=== PATIENT | male | born 1950 | race Caucasian/White ===

== ENCOUNTER 2018-02-10 18:51 | Inpatient (IN) | payer MEDICAID ==
[~2018-02-10] VITALS: Ht 180.3 cm; Wt 95.7 kg
[2018-02-10] MEDS ORDERED: Nitroglycerin 2% oint pkt TOPIC ONE (19:00)
[2018-02-10 19:15] VITALS: BP 107/77
--- NOTE | 2018-02-10 19:29 | Emergency Room Report ---
History of Present Illness General Chief Complaint: Chest Pain Source: Patient Present Illness HPI Patient presents with left-sided and substernal chest pain. There are 2 components of it one is pressure in the other one is like a needle. He felt weakness today when he felt the pain. He took baby aspirin in the morning when he felt this pain he took nitroglycerin. The nitroglycerin helped him. Before taking nitroglycerin the blood pressure was 140/80. He states this is quite high for him. He had nausea without any vomiting. He also felt diaphoretic at that time. He denies having exertional symptoms in the last few weeks however he has not felt well and has gained 30 pounds over the last few months. He's been taking Salt with lemon juice to help him with his gastrointestinal tract. Risk factors for cardiac disease: Hypertension, high cholesterol. The patient denies diabetes or smoking. The patient had cardiac catheterization done in 2014. He's not really followed up since that time. He was told that his arteries were pretty good at that time. The patient does suffer from anxiety. No fevers, cough, headache, diarrhea, extremity pain. 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 Reviewed Nursing Documentation: PMH: Agreed; PSxH: Agreed Nursing Documentation-PM Past Medical History: No History, Except For Hx Hypertension: Yes - High cholesterol Hx Cancer: Yes - Prostate CA 2000; Melanoma 2000 Review of Systems All Other Systems: negative except mentioned in HPI Physical Exam Vital Signs Date Time Temp Pulse Resp B/P (MAP) Pulse Ox O2 Delivery O2 Flow Rate FiO2 02/10/18 18:55 98.4 84 18 107/77 98 Room Air 98.4 Sp02 EP Interpretation: reviewed, normal General Appearance: well appearing, no apparent distress, GCS 15 Head: normocephalic Eyes: bilateral eye normal inspection, bilateral eye PERRL ENT: moist mucus membranes Neck: supple Respiratory: lungs clear, normal breath sounds Cardiovascular #1: regular rate, rhythm, edema - Trace bilaterally Cardiovascular #2: 2+ radial (R) Gastrointestinal: normal inspection, normal bowel sounds, non tender, no mass, non-distended Musculoskeletal: back normal, gait/station normal, normal range of motion, no calf tenderness, Cosme's Sign negative Neurologic: alert, oriented x3, grossly normal Psychiatric: anxious Skin: normal inspection, warm/dry Medical Decision Making Diagnostic Impression: Primary Impression: Chest pain Qualified Codes: R07.9 - Chest pain, unspecified ER Course The patient presents with weakness and chest pain is made better by taking nitroglycerin. Differential includes acute coronary syndrome, acute myocardial infarction, costochondritis, esophageal spasm, anxiety amongst others. Evaluation will be with EKG, chest x-ray and labs. The patient retreated with aspirin and nitroglycerin bid. EKG without injury. CXR clear. Labs with neg troponin and slightly elevated glucose. Pain free with treatment here. Patient still needs observation and repeated troponins with probable cardiology consultation. Discussed with Dr. Huff who is covering for Dr. Ibrahim and accepts the patient. ([place] not answer calls.) Transient hypotension - nitro bid removed and small saline bolus given. BP better after interventions. Laboratory Tests Test 02/10/18 19:17 White Blood Count 8.3 K/UL (4.8-10.8) Red Blood Count 5.19 M/UL (4.70-6.10) Hemoglobin 15.9 G/DL (14.2-18.0) Hematocrit 45.1 % (42.0-52.0) Mean Corpuscular Volume 87 FL (80-99) Mean Corpuscular Hemoglobin 30.6 PG (27.0-31.0) Mean Corpuscular Hemoglobin Concent 35.2 G/DL (32.0-36.0) Red Cell Distribution Width 11.4 % (11.6-14.8) L Platelet Count 217 K/UL (150-450) Mean Platelet Volume 6.3 FL (6.5-10.1) L Neutrophils (%) (Auto) 62.9 % (45.0-75.0) Lymphocytes (%) (Auto) 23.0 % (20.0-45.0) Monocytes (%) (Auto) 8.3 % (1.0-10.0) Eosinophils (%) (Auto) 4.8 % (0.0-3.0) H Basophils (%) (Auto) 1.0 % (0.0-2.0) Prothrombin Time 10.1 SEC (9.30-11.50) Prothrombin Time INR 1.0 (0.9-1.1) PTT 26 SEC (23-33) Urine Color Pale yellow Urine Appearance Clear Urine pH 7 (4.5-8.0) Urine Specific [place] 1.005 (1.005-1.035) Urine Protein Negative (NEGATIVE) Urine Glucose (UA) Negative (NEGATIVE) Urine Ketones Negative (NEGATIVE) Urine Occult Blood Negative (NEGATIVE) Urine Nitrite Negative (NEGATIVE) Urine Bilirubin Negative (NEGATIVE) Urine Urobilinogen Normal MG/DL (0.0-1.0) Urine Leukocyte Esterase Negative (NEGATIVE) Sodium Level 136 MMOL/L (136-145) Potassium Level 4.3 MMOL/L (3.5-5.1) Chloride Level 100 MMOL/L (98-107) Carbon Dioxide Level 30 MMOL/L (21-32) Anion Gap 7 mmol/L (5-15) Blood Urea Nitrogen 18 mg/dL (7-18) Creatinine 1.0 MG/DL (0.55-1.30) Estimate Glomerular Filtration Rate > 60 mL/min (>60) Glucose Level 128 MG/DL (74-106) H Calcium Level 8.6 MG/DL (8.5-10.1) Total Bilirubin 0.8 MG/DL (0.2-1.0) Aspartate Amino Transferase (AST) 22 U/L (15-37) Alanine Aminotransferase (ALT) 28 U/L (12-78) Alkaline Phosphatase 90 U/L (46-116) Total Creatine Kinase 71 U/L (26-308) Troponin I 0.000 ng/mL (0.000-0.056) Pro-B-Type Natriuretic Peptide 45 pg/mL (0-125) Total Protein 7.5 G/DL (6.4-8.2) Albumin 4.3 G/DL (3.4-5.0) Globulin 3.2 g/dL Albumin/Globulin Ratio 1.3 (1.0-2.7) EKG Diagnostic Results Rate: normal Rhythm: NSR ST Segments: no acute changes Rhythm Strip Diag. Results EP Interpretation: yes Rhythm: NSR, no PVC's, no ectopy Chest X-Ray Diagnostic Results Chest X-Ray Diagnostic Results : Chest X-Ray Ordered: Yes # of Views/Limited/Complete: 1 View Indication: Chest Pain EP Interpretation: Yes Interpretation: no consolidation, no effusion, no pneumothorax Impression: No acute disease Electronically Signed by: Electronically signed by Giovani Hernandez MD Last Vital Signs Date Time Temp Pulse Resp B/P (MAP) Pulse Ox O2 Delivery O2 Flow Rate FiO2 02/10/18 21:45 98.1 75 18 98/57 98 Nasal Cannula 1.0 98.1 Status: improved Disposition: ADMITTED INPATIENT Condition: Serious Referrals: [facility],REFERRING (PCP) Giovani Hernandez M.D. Feb 10, 2018 19:29
[2018-02-10] MEDS ORDERED: ASPIR 8181 MG ORAL (19:33)
[2018-02-10] MEDS ORDERED: ZOCOR40 MG ORAL (19:33)
[2018-02-10 19:35] LABS: APPEARANCE,URINE CLEAR; BILIRUBIN, URINE NEGATIVE (NEGATIVE); COLOR,URINE PALE YELLOW; GLUCOSE, URINE (UA) NEGATIVE (NEGATIVE); KETONES,URINE NEGATIVE (NEGATIVE); LEUKOCYTE ESTERASE ,URINE NEGATIVE (NEGATIVE); NITRITE,URINE NEGATIVE (NEGATIVE); PH,URINE 7 (4.5-8.0); PROTEIN,URINE NEGATIVE (NEGATIVE); UROBILINOGEN,URINE NORMAL MG/DL (0.0-1.0)
[2018-02-10 19:37] LABS: EOSINOPHILS % (AUTO) 4.8 % (0.0-3.0); HEMATOCRIT 45.1 % (42.0-52.0); HEMOGLOBIN 15.9 G/DL (14.2-18.0); MEAN CORPUSCULAR VOLUME 87 FL (80-99); MONOCYTES % (AUTO) 8.3 % (1.0-10.0); NEUTROPHILS % (AUTO) 62.9 % (45.0-75.0); PLATELET COUNT 217 K/UL (150-450); RED BLOOD COUNT 5.19 M/UL (4.70-6.10); RED CELL DISTRIBUTION WIDTH 11.4 % (11.6-14.8); WHITE BLOOD COUNT 8.3 K/UL (4.8-10.8)
[2018-02-10 19:45] LABS: ANION GAP 7 mmol/L (5-15); BLOOD UREA NITROGEN 18 mg/dL (7-18); CALCIUM 8.6 MG/DL (8.5-10.1); CARBON DIOXIDE 30 MMOL/L (21-32); CHLORIDE 100 MMOL/L (98-107); POTASSIUM 4.3 MMOL/L (3.5-5.1); SODIUM 136 MMOL/L (136-145)
[2018-02-10 19:55] LABS: ALANINE AMINOTRANSFERASE 28 U/L (12-78); ALBUMIN 4.3 G/DL (3.4-5.0); ALBUMIN/GLOBULIN RATIO 1.3 (1.0-2.7); ALKALINE PHOSPHATASE 90 U/L (46-116); ASPARTATE AMINO TRANSFERASE 22 U/L (15-37); BILIRUBIN,TOTAL 0.8 MG/DL (0.2-1.0); CREATINE KINASE 71 U/L (26-308)
[2018-02-10 20:13] VITALS: BP 103/64
[2018-02-10] MEDS ORDERED: Nitroglycerin Subl 0.4mg tab SL PRN (20:48)
[2018-02-10] MEDS ORDERED: Aspirin EC 81mg tab ORAL SCH (20:52)
[2018-02-10] MEDS: Atorvastatin 20mg tab ORAL SCH (21:00)
[2018-02-10] MEDS ORDERED: Sodium Chloride 500ML 250 ML IV ONE (21:00)
[2018-02-10 21:13] VITALS: BP 98/57
[2018-02-10 22:00] VITALS: BP 120/79
[2018-02-10] MEDS: Enoxaparin 40mg Inj SUBQ SCH (22:54)
[2018-02-11] VITALS: BP 105/63
[2018-02-11 04:00] VITALS: BP 107/62
[2018-02-11 04:36] LABS: BASOPHILS % (AUTO) 0.8 % (0.0-2.0); EOSINOPHILS % (AUTO) 6.7 % (0.0-3.0); HEMATOCRIT 42.6 % (42.0-52.0); HEMOGLOBIN 15.3 G/DL (14.2-18.0); LYMPHOCYTES % (AUTO) 28.7 % (20.0-45.0); MEAN CORPUSCULAR VOLUME 88 FL (80-99); NEUTROPHILS % (AUTO) 53.7 % (45.0-75.0); PLATELET COUNT 182 K/UL (150-450); RED BLOOD COUNT 4.82 M/UL (4.70-6.10); RED CELL DISTRIBUTION WIDTH 11.1 % (11.6-14.8); WHITE BLOOD COUNT 6.1 K/UL (4.8-10.8)
[2018-02-11 04:52] LABS: ANION GAP 6 mmol/L (5-15); BLOOD UREA NITROGEN 12 mg/dL (7-18); CALCIUM 8.5 MG/DL (8.5-10.1); CARBON DIOXIDE 30 MMOL/L (21-32); CHLORIDE 104 MMOL/L (98-107); CREATININE 0.9 MG/DL (0.55-1.30); POTASSIUM 3.8 MMOL/L (3.5-5.1); SODIUM 140 MMOL/L (136-145)
[2018-02-11 08:00] VITALS: BP 107/71
--- NOTE | 2018-02-11 10:17 | Cardiac Electrophysiology PN ---
Subjective Subjective [id number] Objective Last 24 Hour Vital Signs Date Time Temp Pulse Resp B/P (MAP) Pulse Ox O2 Delivery O2 Flow Rate FiO2 02/11/18 04:12 62 02/11/18 04:00 97.0 61 18 107/62 97 Room Air 97.0 02/11/18 00:00 98.2 72 18 105/63 95 Room Air 98.2 02/11/18 00:00 64 02/10/18 22:00 97.9 60 18 120/79 95 Room Air 97.9 02/10/18 21:45 98.1 75 18 98/57 98 Nasal Cannula 1.0 98.1 02/10/18 21:13 98.1 75 18 98/57 98 Nasal Cannula 1.0 98.1 02/10/18 20:13 98.1 78 18 103/64 97 Nasal Cannula 1.0 98.1 02/10/18 19:30 128/74 02/10/18 19:15 98.4 84 18 107/77 98 Room Air 98.4 02/10/18 19:15 84 18 Room Air 02/10/18 18:55 98.4 84 18 107/77 98 Room Air 98.4 Intake and Output 02/10/18 02/11/18 19:00 07:00 Intake Total 600 ml Balance 600 ml Intake IV Total 600 ml # Voids 3 Laboratory Tests Test 02/10/18 19:17 02/11/18 04:04 White Blood Count 8.3 K/UL (4.8-10.8) 6.1 K/UL (4.8-10.8) Red Blood Count 5.19 M/UL (4.70-6.10) 4.82 M/UL (4.70-6.10) Hemoglobin 15.9 G/DL (14.2-18.0) 15.3 G/DL (14.2-18.0) Hematocrit 45.1 % (42.0-52.0) 42.6 % (42.0-52.0) Mean Corpuscular Volume 87 FL (80-99) 88 FL (80-99) Mean Corpuscular Hemoglobin 30.6 PG (27.0-31.0) 31.8 PG (27.0-31.0) H Mean Corpuscular Hemoglobin Concent 35.2 G/DL (32.0-36.0) 36.0 G/DL (32.0-36.0) Red Cell Distribution Width 11.4 % (11.6-14.8) L 11.1 % (11.6-14.8) L Platelet Count 217 K/UL (150-450) 182 K/UL (150-450) Mean Platelet Volume 6.3 FL (6.5-10.1) L 7.2 FL (6.5-10.1) Neutrophils (%) (Auto) 62.9 % (45.0-75.0) 53.7 % (45.0-75.0) Lymphocytes (%) (Auto) 23.0 % (20.0-45.0) 28.7 % (20.0-45.0) Monocytes (%) (Auto) 8.3 % (1.0-10.0) 10.0 % (1.0-10.0) Eosinophils (%) (Auto) 4.8 % (0.0-3.0) H 6.7 % (0.0-3.0) H Basophils (%) (Auto) 1.0 % (0.0-2.0) 0.8 % (0.0-2.0) Prothrombin Time 10.1 SEC (9.30-11.50) Prothromb Time International Ratio 1.0 (0.9-1.1) Activated Partial Thromboplast Time 26 SEC (23-33) Urine Color Pale yellow Urine Appearance Clear Urine pH 7 (4.5-8.0) Urine Specific [place] 1.005 (1.005-1.035) Urine Protein Negative (NEGATIVE) Urine Glucose (UA) Negative (NEGATIVE) Urine Ketones Negative (NEGATIVE) Urine Occult Blood Negative (NEGATIVE) Urine Nitrite Negative (NEGATIVE) Urine Bilirubin Negative (NEGATIVE) Urine Urobilinogen Normal MG/DL (0.0-1.0) Urine Leukocyte Esterase Negative (NEGATIVE) Sodium Level 136 MMOL/L (136-145) 140 MMOL/L (136-145) Potassium Level 4.3 MMOL/L (3.5-5.1) 3.8 MMOL/L (3.5-5.1) Chloride Level 100 MMOL/L (98-107) 104 MMOL/L (98-107) Carbon Dioxide Level 30 MMOL/L (21-32) 30 MMOL/L (21-32) Anion Gap 7 mmol/L (5-15) 6 mmol/L (5-15) Blood Urea Nitrogen 18 mg/dL (7-18) 12 mg/dL (7-18) Creatinine 1.0 MG/DL (0.55-1.30) 0.9 MG/DL (0.55-1.30) Estimat Glomerular Filtration Rate > 60 mL/min (>60) > 60 mL/min (>60) Glucose Level 128 MG/DL (74-106) H 109 MG/DL (74-106) H Calcium Level 8.6 MG/DL (8.5-10.1) 8.5 MG/DL (8.5-10.1) Total Bilirubin 0.8 MG/DL (0.2-1.0) Aspartate Amino Transf (AST/SGOT) 22 U/L (15-37) Alanine Aminotransferase (ALT/SGPT) 28 U/L (12-78) Alkaline Phosphatase 90 U/L (46-116) Total Creatine Kinase 71 U/L (26-308) Troponin I 0.000 ng/mL (0.000-0.056) 0.000 ng/mL (0.000-0.056) Pro-B-Type Natriuretic Peptide 45 pg/mL (0-125) Total Protein 7.5 G/DL (6.4-8.2) Albumin 4.3 G/DL (3.4-5.0) Globulin 3.2 g/dL Albumin/Globulin Ratio 1.3 (1.0-2.7) Fan Cisse MD Feb 11, 2018 10:17
[2018-02-11] MEDS: Aspirin EC 81mg tab ORAL SCH (10:20)
[2018-02-11] MEDS ORDERED: Lexiscan 0.4mg/5ml syringe IV PRN (10:30)
--- NOTE | 2018-02-11 10:57 | Diagnostic Imaging Report ---
Indication: Chest pain Technique: XRAY Chest 1v Comparison: None Findings: Heart size and mediastinal contours are within normal limits given technique. There is no focal consolidation, pneumothorax or pleural effusion. Osseous structures demonstrate no acute abnormality. Impression: No radiographic evidence of acute cardiopulmonary disease.
[2018-02-11 12:00] VITALS: BP 112/73
--- NOTE | 2018-02-11 14:45 | History and Physical Report ---
DATE OF ADMISSION: 02/10/2018 REASON FOR ADMISSION: 1. Chest pain. 2. Hypertension. HISTORY OF PRESENT ILLNESS: The patient is a pleasant 67-year-old gentleman, who was admitted overnight for further evaluation and care of chest pain after eating. The patient states that he has noted several times after eating garlic he becomes diaphoretic, nauseated, and slightly weak. This time, he also developed some left-sided chest pain. He had nitroglycerin at home and took one pill and felt better. The patient's nitroglycerin was prescribed by his primary care physician at his request in case of an emergency as he has a history of familial coronary artery disease. The patient did undergo a heart catheterization in 2013, which was negative. He is currently feeling well, chest pain has since resolved. Blood pressure has stabilized and come back to normal. The patient states that he had been initiated on one antihypertensive medication, but only took it for one week and discontinued it. PAST MEDICAL HISTORY: 1. Hypertension. 2. Hyperlipidemia. PAST SURGICAL HISTORY: Heart catheterization in 2013. ALLERGIES: To penicillin. SOCIAL HISTORY: No tobacco, alcohol, or illicit drug use. FAMILY HISTORY: Positive for coronary artery disease. REVIEW OF SYSTEMS: NEUROLOGIC: The patient denies headache, change in vision, syncope, or presyncopal episodes. CARDIOVASCULAR: He is having some chest pain and pressure. No palpitations. PULMONARY: No difficulty breathing, productive cough, or sputum. GASTROINTESTINAL/GENITOURINARY: No nausea, vomiting, or diarrhea. ENDOCRINOLOGY: No night sweats, fevers, or chills. MUSCULOSKELETAL: The patient is feeling tired and fatigued. PHYSICAL EXAMINATION: VITAL SIGNS: Blood pressure 107/62, pulse oximetry 97%, pulse 61, and temperature 97.0. GENERAL: The patient awake, alert, not otherwise in distress. HEENT: Extraocular muscles intact. No lymphadenopathy noted. CARDIOVASCULAR: S1, S2. No rubs or gallops. PULMONARY: Clear to auscultation bilaterally. No rales, rhonchi or wheezes. ABDOMEN: Nondistended, nontender. Good bowel sounds in all four quadrants. EXTREMITIES: No edema. Fair pedal pulses bilaterally. LABORATORY DATA: Laboratories dated February 11, 2018, white cell count 6.1, hemoglobin 15.3, and platelet count 182. Sodium 140, potassium 3.8, creatinine 0.9, and glucose 109. ASSESSMENT AND PLAN: 1. Acute coronary syndrome/chest pain, has resolved post one dose of nitroglycerin. Atypical in nature. Troponin negative. Cardiology consult has been placed. After echocardiogram with and without a stress test, Cardiology to determine whether or not heart catheterization appropriate at that time. Depending on these investigations, procedures, the patient will then be discharged. 2. Hypertension. Resolved. Post nitroglycerin. Continue IV fluids. 3. Hyperlipidemia. Continue statin therapy. 4. DVT prophylaxis with Lovenox. Kyler Quintero MD DR: ADAM JOB#: [id number] CC: HEATHER
[2018-02-11 16:00] VITALS: BP 124/77
--- NOTE | 2018-02-11 19:45 | Consultation ---
DATE OF CONSULTATION: 02/11/2018 CARDIOLOGY CONSULTATION CONSULTING PHYSICIAN: Fan Cisse M.D. REFERRING PHYSICIAN: Aman Ibrahim M.D. ADDITIONAL REFERRING PHYSICIAN: Filiberto Browning M.D. REASON FOR CONSULTATION: Chest pain. HISTORY OF PRESENT ILLNESS: The patient is a 67-year-old gentleman who was just recently diagnosed with hypertension and presented to the emergency room yesterday complaining of left-sided chest pain. The pain was pressure-like and was associated with weakness. He also stated that he was recently started on blood pressure medication as his blood pressure was in the 140s. The patient denies any prior myocardial infarction, congestive heart failure, or known coronary artery disease. The patient was admitted and Cardiology consultation was obtained for further evaluation and management. At the time of my evaluation, the patient still off and on gets chest pain. REVIEW OF SYSTEMS: Performed and was negative other than what was mentioned in the history of present illness. PAST MEDICAL HISTORY: As mentioned above. He states that he had cardiac catheterization arteries were good at that time, but he does not remember when. He reports he also has history of prostate cancer in June 2001. FAMILY HISTORY: Noncontributory. SOCIAL HISTORY: He lives at home. Does not smoke or drink alcohol. PHYSICAL EXAMINATION: VITAL SIGNS: Show blood pressure of 107/62, pulse 61, respirations 18, and he is afebrile. HEAD AND NECK: No JVD or carotid bruits. LUNGS: Clear. CARDIOVASCULAR: Regular S1 and S2 with no gallop or murmur. ABDOMEN: Soft and nontender. EXTREMITIES: No pitting edema. LABORATORY DATA: White count of hematocrit 15.7, hematocrit 42.6, platelet count 182,000. Sodium 140, potassium 3.8, BUN of 12, creatinine 0.9, glucose of 109. Troponin negative x2. ASSESSMENT AND PLAN: 1. Atypical chest pain. The patient was ruled out for myocardial infarction. Repeat EKG and echocardiogram. We will schedule the patient for a nuclear stress test for further evaluation. Also check D-dimer. The patient has no known history of aortic dissection. It is of note that also the patient reported he had cardiac catheterization in 2014, and reportedly was negative. 2. Hypertension. We will start the patient on Lopressor 25 mg b.i.d. 3. Hyperlipidemia, on Lipitor. Thank you very much for allowing me to participate in the care of this patient. Please do not hesitate to contact me for any questions regarding my evaluation. Fan Cisse M.D. DR: THERON JOB#: [id number] CC:
[2018-02-11 20:00] VITALS: BP 149/68
[2018-02-11] MEDS: Atorvastatin 20mg tab ORAL SCH (20:40)
[2018-02-11] MEDS: Enoxaparin 40mg Inj SUBQ SCH (20:49)
[2018-02-12] VITALS: BP 152/79
--- NOTE | 2018-02-12 00:36 | Cardiology Report ---
APPROVED REPORT EKG Measurement Heart [id number] Normal sinus rhythm Normal ECG
[2018-02-12 04:00] VITALS: BP 130/62
[2018-02-12 07:56] LABS: ANION GAP 6 mmol/L (5-15); BLOOD UREA NITROGEN 5 mg/dL (7-18); CARBON DIOXIDE 31 MMOL/L (21-32); CHLORIDE 105 MMOL/L (98-107); CREATININE 0.9 MG/DL (0.55-1.30); POTASSIUM 4.3 MMOL/L (3.5-5.1); SODIUM 142 MMOL/L (136-145)
[2018-02-12 08:00] VITALS: BP 115/69
--- NOTE | 2018-02-12 08:15 | Nephrology Progress Note ---
Assessment/Plan Assessment/Plan 1. ACS/Chest Pain- DC today post nuclear stress test if it is negative 2. HTN- start lopressor 3. HLP- statin 4. DVT prophylaxsis with lovenox Subjective Date patient seen: Feb 12, 2018 Time patient seen: 08:12 ROS Limited/Unobtainable: No Allergies: Coded Allergies: PENICILLINS (Verified Allergy, Unknown, 02/10/18) All Systems: reviewed and negative except above Subjective Patient without chest pain Objective Last 24 Hour Vital Signs Date Time Temp Pulse Resp B/P (MAP) Pulse Ox O2 Delivery O2 Flow Rate FiO2 02/12/18 04:00 97.9 60 18 130/62 95 Room Air 97.9 02/12/18 04:00 63 02/12/18 00:00 98.4 68 18 152/79 96 Room Air 98.4 02/12/18 00:00 64 02/11/18 20:00 88 02/11/18 20:00 97.6 88 20 149/68 98 Room Air 97.6 02/11/18 16:00 67 02/11/18 16:00 98.0 69 18 124/77 96 Room Air 98.0 02/11/18 12:00 97.7 64 19 112/73 96 Room Air 97.7 02/11/18 12:00 54 Intake and Output 02/11/18 02/12/18 19:00 07:00 Intake Total 560 ml 240 ml Balance 560 ml 240 ml Intake Oral 560 ml 240 ml # Voids 5 2 # Bowel Movements 1 Laboratory Tests 02/12/18 06:30: Sodium Level 142, Potassium Level 4.3, Chloride Level 105, Carbon Dioxide Level 31, Anion Gap 6, Blood Urea Nitrogen 5L, Creatinine 0.9, Estimat Glomerular Filtration Rate > 60, Glucose Level 98, Calcium Level 9.0 Height (Feet): 5 Height (Inches): 11.00 Weight (Pounds): 211 General Appearance: no apparent distress, alert EENT: normal ENT inspection, TMs normal Neck: non-tender, supple Cardiovascular: normal rate, regular rhythm Respiratory/Chest: lungs clear, normal breath sounds Abdomen: non tender, soft Edema: no edema noted Arm (L), no edema noted Arm (R), no edema noted Leg (L), no edema noted Leg (R), no edema noted Pedal (L), no edema noted Pedal (R), no edema noted Generalized Kyler Quintero M.D. Feb 12, 2018 08:15
--- NOTE | 2018-02-12 08:16 | Discharge Instructions ---
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 Kyler Quintero M.D. Feb 12, 2018 08:16
[2018-02-12] MEDS: Aspirin EC 81mg tab ORAL SCH (08:20)
[2018-02-12] MEDS ORDERED: Tubing IV Secondary IV ONE (10:07)
[2018-02-12 12:00] VITALS: BP 120/70
--- NOTE | 2018-02-12 13:55 | Cardiology Report ---
APPROVED REPORT EXAM: Two-dimensional and M-mode echocardiogram with Doppler and color Doppler. INDICATION Chest Pain M-Mode DIMENSIONS IVSd1.1 (0.7-1.1cm)Left Atrium (MM)4.3 (1.6-4.0cm) LVDd4.9 (3.5-5.6cm)Aortic Root4.0 (2.0-3.7cm) PWd1.1 (0.7-1.1cm)Aortic Cusp Exc.2.4 (1.5-2.0cm) IVSs1.6 cm LVDs3.3 (2.5-4.0cm) PWs1.3 cm Technically difficult study due to poor acoustical windows. Normal left ventricular chamber size, systolic function and wall motion to extent visualized. Left ventricular ejection fraction estimated to be 50-55 %. Mild left ventricular hypertrophy by 2-D . No evidence of pericardial effusion. All other cardiac chamber sizes are within normal limits. Focal aortic valve sclerosis with adequate cusp excursion. Thickened mitral valve leaflets with normal excursion. Mitral annulus and aortic root calcification. Pulmonic valve not well visualized. Normal tricuspid valve structure. IVC dilated at 2.4cm without physiologic collapse suggestive of increased RA pressure. A color flow and spectral Doppler study was performed and revealed: No aortic regurgitation. Mild mitral regurgitation. Normal left ventricular diastolic function . Trace tricuspid regurgitation. Tricuspid systolic velocities suggests peak right ventricular systolic pressure of 17 mmHg No Pulmonic regurgitation present.
--- NOTE | 2018-02-12 15:18 | Cardiac Electrophysiology PN ---
Assessment/Plan Assessment/Plan 1. Atypical chest pain. The patient was ruled out for myocardial infarction. Echocardiogram EF 55%. Had nuclear stress test and results still pending Had cardiac catheterization in 2015, and reportedly was negative. 2. Hypertension. Stable off BP meds 3. Hyperlipidemia, on Lipitor. Subjective Subjective Had nuclear stress test with Lexiscan today. No CP or SOB. Results pending Objective Last 24 Hour Vital Signs Date Time Temp Pulse Resp B/P (MAP) Pulse Ox O2 Delivery O2 Flow Rate FiO2 02/12/18 12:00 97.3 63 120/70 (87) 97.3 63 02/12/18 12:00 64 02/12/18 08:00 97.2 60 20 115/69 97 Room Air 97.2 02/12/18 08:00 62 02/12/18 04:00 97.9 60 18 130/62 95 Room Air 97.9 02/12/18 04:00 63 02/12/18 00:00 98.4 68 18 152/79 96 Room Air 98.4 02/12/18 00:00 64 02/11/18 20:00 88 02/11/18 20:00 97.6 88 20 149/68 98 Room Air 97.6 02/11/18 16:00 67 02/11/18 16:00 98.0 69 18 124/77 96 Room Air 98.0 Intake and Output 02/11/18 02/12/18 19:00 07:00 Intake Total 560 ml 240 ml Balance 560 ml 240 ml Intake Oral 560 ml 240 ml # Voids 5 2 # Bowel Movements 1 Laboratory Tests Test 02/12/18 06:30 Sodium Level 142 MMOL/L (136-145) Potassium Level 4.3 MMOL/L (3.5-5.1) Chloride Level 105 MMOL/L (98-107) Carbon Dioxide Level 31 MMOL/L (21-32) Anion Gap 6 mmol/L (5-15) Blood Urea Nitrogen 5 mg/dL (7-18) L Creatinine 0.9 MG/DL (0.55-1.30) Estimat Glomerular Filtration Rate > 60 mL/min (>60) Glucose Level 98 MG/DL (74-106) Calcium Level 9.0 MG/DL (8.5-10.1) Objective HEAD AND NECK: No JVD LUNGS: Clear. CARDIOVASCULAR: Regular S1 and S2 with no gallop or murmur. ABDOMEN: Soft and nontender. EXTREMITIES: No pitting edema. Fan Cisse MD Feb 12, 2018 15:18
--- NOTE | 2018-02-12 15:25 | Diagnostic Imaging Report ---
Indication: chest pain Technique: The study was conducted under the supervision of a regulator operator. lexiscan (regadenoson) infusion over 10 seconds followed by intravenous administration of 31.9 mCi of technetium 99m Myoview was performed. Three plane SPECT imaging of the heart was then performed. A resting study was performed as part of the one-day protocol with 10.1 mCi of technetium 99m myoview injected intravenously at that time. Three plane SPECT imaging of the heart was obtained. Comparison: None Clinical data: 1. Clinical response: Non ischemic 2. Electrocardiographic response: Non ischemic Findings: The myocardial perfusion scan demonstrates no fixed or reversible perfusion defects. Left ventricular ejection fraction is estimated at 67%. IMPRESSION: Negative myocardial perfusion scan
--- NOTE | 2018-02-15 12:04 | Discharge Summary ---
Discharge Summary Discharge Summary _ DATE OF ADMISSION: 02/10/2018 DATE OF DISCHARGE: 02/12/2018 REASON FOR ADMISSION: 67 years old male with past medical history of hypertension, high cholesterol , presented to emergency room for evaluation due to chest pain. Patient developed chest pain after eating garlic. He became diaphoretic, nauseous and weak. He developed left-sided chest pain , no shortness of breath. He took nitroglycerin as prescribed by his primary care physician and felt better. Patient had a cardiac catheterization in 2013, which was negative. Upon evaluation in emergency department vital signs were stable. Patient was normotensive. Troponin was negative. Stable electrolytes and renal parameters, no leukocytosis, stable hemoglobin and hematocrit. Pro BNP- 45. Chest x-ray revealed no acute cardiopulmonary pathology EKG revealed normal sinus rhythm, no acute ischemic changes Patient admitted with diagnosis of chest pain, rule out acute coronary syndrome CONSULTANTS: teacher aide Dr. Cisse [facility]SE: Patient admitted to telemetry floor. Cardiology consult was requested. Serial troponin 2 were negative. Echocardiogram revealed preserved ejection fraction 55%. Patient was on Aspirin. Nitroglycerin was on board as needed. Stress test was negative. Calculated ejection fraction of 67%. DVT prophylaxis provided. Blood pressure was stable without any antihypertensive medications. Statin was continued. No further chest pain after the initial episode, no shortness of breath. Pulse oximetry was stable on room air. Manager Of Warehouse cleared patient for discharge. Patient was stable for discharge home with outpatient follow-up with primary care provider Chest pain was atypical . FINAL DIAGNOSES: Atypical chest pain Hypertension Hyperlipidemia DISCHARGE MEDICATIONS: See Medication Reconciliation list. DISCHARGE INSTRUCTIONS: Patient was discharged home. Follow up with primary care provider next week. I have been assigned to dictate discharge summary for this account. I was not involved in the patient's management. Kourtney Cooper NP Feb 15, 2018 12:04
== END 2018-02-12 16:50 | disposition home or self-care (01) | DRG 203 ==
LOC: EMR 19:10 → 2E 20:30 → EDBEDREQ 20:43
DX: R07.89 Other chest pain (principal); E78.5 Hyperlipidemia, unspecified; I10 Essential (primary) hypertension; Z88.0 Allergy status to penicillin; Z82.49 Family history of ischemic heart disease and other diseases of the circulatory system
CPT/HCPCS: 36415; 71045; 78452; 80048; 80053; 81003; 82550; 83880; 84484; 85025; 85610; 85730; 93005; 93017; 93306; 99285; J2785

== ENCOUNTER 2019-07-24 01:16 | Emergency (ER) | payer MEDICAID ==
[~2019-07-24] VITALS: Ht 180.3 cm; Wt 90.7 kg
[~2019-07-24 01:16] MED LIST: ASPIR 8181 MG ORAL; ZOCOR40 MG ORAL
--- NOTE | 2019-07-24 01:26 | NUR ---
ER Nurse Note: Pt walked in c/o RT hand second digit pain and swelling since 0110. Pt stated he was at a gas station and got bitten by an insect of unk species. Finger red, slightly swollen; no puss, no drainage. Pt stated it is getting more painful to move finger. Cap refill less than 3 secs.
[2019-07-24 01:27] VITALS: BP 134/88
[2019-07-24] MEDS ORDERED: IBUPROFEN600 MG ORAL (01:38)
[2019-07-24] MEDS ORDERED: ACETAMINOPHEN325 M1 ORAL (01:38)
[2019-07-24] MEDS ORDERED: BENADRYL ALLERG25 M1 PO (01:38)
[2019-07-24 01:45] VITALS: BP 134/88
[2019-07-24] MEDS ORDERED: Acetaminophen 500mg (ES) tab ORAL ONE (01:45)
[2019-07-24] MEDS ORDERED: Tetanus/Diptheria/Pertussis IM ONE (01:45)
--- NOTE | 2019-07-24 01:45 | NUR ---
ER Nurse Note: Pt seen, treated, cleared to be discharged per ERMD. Discharge instructions given with repeat verbalization by pt. Encouraged pt follow up with primary care doctor within one week. Pt is aox4, on room air, with stable vital signs, no signs of distress. ID band removed. Pt is able to ambulate with steady gait. pt took all belongings.
--- NOTE | 2019-07-24 01:45 | Emergency Room Report ---
History of Present Illness General Chief Complaint: Animal Bite Source: Patient Present Illness HPI Disclaimer: Please note that this report is being documented using DRAG[employer] technology. This can lead to erroneous entry secondary to incorrect interpretation by the dictating instrument. HPI: 68-year-old male presents for evaluation of possible insect bite to the right index finger. The patient was pumping gas approximately 15 minutes ago when he noticed a sudden sharp stinging while grabbing the handle. He saw several flying insects around at that time believes he was bit/stung by 1 of them. States he removed a very small dark sliver from his finger. Believes it was a stinger. Reports pain in the tip of his finger and local erythema. Able to flex and extend the digit without difficulty. No bleeding, no purulence. He reports a small "puncture wound" but otherwise no breakdown. PMH: CAD, hypertension, hyperlipidemia PSH: Reviewed Allergies: Penicillin Social Hx: Denies Allergies: Coded Allergies: PENICILLINS (Verified Allergy, Unknown, 02/10/18) Nursing Documentation-PMH Hx Cardiac Problems: No Hx Hypertension: Yes - High cholesterol Hx Cancer: Yes - melanoma 2001, prostate cancer Hx Gastrointestinal Problems: No Hx Neurological Problems: No Review of Systems All Other Systems: negative except mentioned in HPI Physical Exam Vital Signs Date Time Temp Pulse Resp B/P (MAP) Pulse Ox O2 Delivery O2 Flow Rate FiO2 19 01:19 97.5 81 16 134/88 (103) 94 Room Air General: Awake and alert, no acute distress HEENT: NC/AT. EOMI. Resp: Normal work of breathing Skin: The digits on the right hand have no significant edema though there is erythema over the distal pad of the right index finger. No bleeding, no purulence, no breakdown. Small avulsion of the epidermis but no obvious penetrating injury or puncture wound. MSK: Normal tone and bulk. Moving all extremities. No obvious deformity. No fusiform swelling. Able to flex and extend all digits of the hand. Mild tenderness to palpation over the distal pad of the right index finger. Sensation intact. Neuro: Awake and alert. Mentating appropriately Medical Decision Making Diagnostic Impression: Primary Impression: Finger pain Additional Impression: Insect bite ER Course 68-year-old male presents for evaluation of possible insect bite to the right index finger while pumping gas. It does not know what bit him or what may have caused the either very small puncture lizz or an abrasion of the superficial epidermis but he does state he removed a "stinger." Unknown last tetanus. Will update and treat the patient with NSAIDs and Benadryl for local swelling. This may be just a local reaction to an insect bite. I do not see any signs of necrotic tissue, no Knievel signs. He can follow-up as outpatient. Discussed signs and symptoms to look out for for worsening infection and signs of systemic infection. He is to follow-up with his PMD and return to the emergency department new or worsening symptoms. He understands and agrees with this treatment plan. Discharged home. Last Vital Signs Date Time Temp Pulse Resp B/P (MAP) Pulse Ox O2 Delivery O2 Flow Rate FiO2 07/24/19 01:27 97.5 81 16 134/88 94 Room Air Disposition: HOME, SELF-CARE Condition: Stable Scripts Diphenhydramine Hcl (BENADRYL ALLERGY) 25 Mg Tablet 25 MG PO TID for 5 Days, #30 TAB Prov: Nadeem Jimenez MD 07/24/19 Acetaminophen* (ACETAMINOPHEN 325MG TABLET*) 325 Mg Tablet 650 MG ORAL Q6H PRN for For Pain for 5 Days, #30 TAB Prov: Nadeem Jimenez MD 07/24/19 Ibuprofen* (MOTRIN*) 600 Mg Tablet 600 MG ORAL Q8H PRN for For Pain, #30 TAB 0 Refills Prov: Nadeem Jimenez MD 07/24/19 Referrals: Tasha Sumner. [facility] Patient Instructions: Insect Bite, [id number] Additional Instructions: Your evaluated in the emergency department for a possible insect bite on your finger. Your tetanus was updated in the emergency department. He will be treated with Benadryl for swelling and Tylenol and Motrin as needed for pain. If you see skin breakdown, significant swelling, uncontrollable pain, vomiting, diarrhea or any other changes in your health return to the emergency department for reevaluation Nadeem Jimenez MD Jul 24, 2019 01:45
== END 2019-07-24 01:45 | disposition home or self-care (01) ==
LOC: EMR 01:37
DX: S60.460A Insect bite (nonvenomous) of right index finger, initial encounter (principal); W57.XXXA Bitten or stung by nonvenomous insect and other nonvenomous arthropods, initial encounter; Y92.9 Unspecified place or not applicable; I11.9 Hypertensive heart disease without heart failure; I25.10 Atherosclerotic heart disease of native coronary artery without angina pectoris; E78.5 Hyperlipidemia, unspecified; Z88.0 Allergy status to penicillin; Z85.46 Personal history of malignant neoplasm of prostate; Z85.820 Personal history of malignant melanoma of skin; E78.00 Pure hypercholesterolemia, unspecified; Z23 Encounter for immunization
CPT/HCPCS: 90471; 90715; Z7502; 99282

== ENCOUNTER 2020-09-02 16:48 | Emergency (ER) | payer MEDICAID ==
[~2020-09-02] VITALS: Ht 180.3 cm; Wt 95.3 kg
[~2020-09-02 16:48] MED LIST changes: +ACETAMINOPHEN325 M1 ORAL; +BENADRYL ALLERG25 M1 PO; +IBUPROFEN600 MG ORAL
[2020-09-02 17:18] VITALS: BP 143/83
--- NOTE | 2020-09-02 17:18 | NUR ---
ED Nurse Note:pt. came from home with right facial numbness and discomfort, pt. is ambulatory, VSS, he is A/Ox4, no signs of stroke present
--- NOTE | 2020-09-02 17:34 | Emergency Room Report ---
History of Present Illness General Chief Complaint: General Complaint Present Illness HPI 69 YO Male presents to the ED c/o onset of facial numbness that began on the right side of the upper lip and extended to the right cheek bone and lateral aspect of the right. eye. Pt. reports transient and began to spontaneously resolve. Pt. reports while resolving he describes the affected area to feel "warm" . He also reports an episode of shooting electrical sensation and numbness along his whole right side all the way down to the toes. Pt. reports tapping on the right sinus area or trying to blow his nose exacerbates shooting pain on right side of his face in a similar fashion but without radiation down his whole body. He denies pain at this time unless he taps on his face. Pt. denies recent dental procedures. He reports s/p mechanical trip and fall while running outside last week. Pt. reports hitting his head and sustaining bruise just under his right eye. Pt. reports he has tenderness in that area and it began 2 days after fall. Pt. denies LOC. He denies midline neck or back pain. Pt. reports feeling "pressure" around the right eye. He reports some mild pain with moving his eye in various directions. Pt. reports taking ASA daily. he has hx of HTN , melanoma and hyperlipidemia. He denies nausea or vomiting. He r eports intermittent dizziness/ blurry vision in just the right eye when looking back and forth too quickly. He denies having dizziness prior to arrival. He denies contact lens use. He denies fb sensation or scratching sensation of the right eye. He denies transient loss of vision or decreased vision. He denies bloody nose. He denies open wounds or bleeding otherwise. He denies loss of motor function, muscle weakness, slurred speech, facial droop or incontinence. Allergies: Coded Allergies: PENICILLINS (Verified Allergy, Unknown, 02/10/18) COVID-19 Screening Contact w/high risk pt: No Experienced COVID-19 symptoms?: No COVID-19 Testing performed FULL TIME PARAMEDIC: No Patient History Past Medical History: see triage record Past Surgical History: none Pertinent Family History: none Reviewed Nursing Documentation: PMH: Agreed; PSxH: Agreed Nursing Documentation-PMH Hx Cardiac Problems: No Hx Hypertension: Yes - High cholesterol Hx Cancer: Yes - melanoma 2001, prostate cancer Hx Gastrointestinal Problems: No Hx Neurological Problems: No Review of Systems All Other Systems: negative except mentioned in HPI Physical Exam Vital Signs Date Time Temp Pulse Resp B/P (MAP) Pulse Ox O2 Delivery O2 Flow Rate FiO2 09/02/20 16:52 97.9 86 18 143/83 (103) 95 Room Air Sp02 EP Interpretation: reviewed, normal General Appearance: no apparent distress, alert, GCS 15, non-toxic Head: normocephalic, other - Contusion and periorbital ST swelling of the right eye/ cheekbone. Eyes: bilateral eye normal inspection, bilateral eye PERRL, bilateral eye EOMI, bilateral eye other - no lid swelling. ENT: hearing grossly normal, normal voice Neck: full range of motion, no bony tend Respiratory: chest non-tender, lungs clear, normal breath sounds, speaking full sentences Cardiovascular #1: regular rate, rhythm, no edema Musculoskeletal: back normal, normal range of motion, gait/station normal, tender - TTP to the right maxillary / cheek bone area of the face. ecchymosis noted. No midline spinous process ttp. No palpable step-offs or obvious deformities of the cervical,thoracic, lumbar, or sacral spine. Neurologic: alert, motor strength/tone normal, oriented x3, sensory intact, responsive, speech normal, normal gait, no pronator, grossly normal, no focal defects, other - no facial droop. marketing effectiveness manager strength equal, normal finger to nose. able to raise eyebrows and smile normally. NO dysarthria. Alert and answering questions providing sufficient amount of detail without increase in response time or difficulty with word recall. Psychiatric: judgement/insight normal Skin: Ecchymosis/Bruising - lower right periorbital ST/ right cheekbone/maxillary area. No lid swelling. Medical Decision Making PA Attestation Dr. Brandon is my supervising Physician whom patient management has been discussed with. Diagnostic Impression: Primary Impression: Facial contusion Qualified Codes: S00.83XA - Contusion of other part of head, initial encounter Additional Impression: Facial paresthesia ER Course 69 YO Male presents to the ED c/o onset of facial numbness that began on the right side of the upper lip and extended to the right cheek bone and lateral aspect of the right. eye. Pt. reports transient and began to spontaneously resolve. Pt. reports while resolving he describes the affected area to feel "warm" . He also reports an episode of shooting electrical sensation and numbness along his whole right side all the way down to the toes. Pt. reports tapping on the right sinus area or trying to blow his nose exacerbates shooting pain on right side of his face in a similar fashion but without radiation down his whole body. He denies pain at this time unless he taps on his face. Pt. denies recent dental procedures. He reports s/p mechanical trip and fall while running outside last week. Pt. reports hitting his head and sustaining bruise just under his right eye. Pt. reports he has tenderness in that area and it began 2 days after fall. Pt. denies LOC. He denies midline neck or back pain. Pt. reports feeling "pressure" around the right eye. He reports some mild pain with moving his eye in various directions. Pt. reports taking ASA daily. he has hx of HTN , melanoma and hyperlipidemia. He denies nausea or vomiting. He reports intermittent dizziness/ blurry vision in just the right eye when looking back and forth too quickly. He denies having dizziness prior to arrival. He denies contact lens use. He denies fb sensation or scratching sensation of the right eye. He denies transient loss of vision or decreased vision. He denies bloody nose. He denies open wounds or bleeding otherwise. He denies loss of motor function, muscle weakness, slurred speech, facial droop or incontinence. Ddx considered but are not limited to Fracture, dislocation, contusion, Sprain/Strain/Spasm, nerve contusion, concussion, subdural hematoma, SAH, CVA just to name a few.. Vital signs: are WNL, pt. is afebrile H&PE are most consistent with musculoskeletal injury will perform imaging to r/o fractures/dislocations. No focal neurological deficits. Patient is nontoxic in appearance and currently in no acute distress. No facial droop no pronator drift. Patient is ambulatory with a steady gait without assistance. He is speaking full sentences he is providing sufficient amount of detail to questions with no increase in response time or difficulty with word recall. No clinical evidence of acute globe entrapment. ORDERS: - CT Head and Facial bones no contrast: unremarkable other than swelling of the right sinus soft tissues. ED INTERVENTIONS: - None required at this time. - I D/w pt. results of imaging his imaging studies. -I do not identify an emergent condition at this time. With current presentat ion, pt. is stable for close outpatient follow up and conservative treatment. D/w pt. to return promptly to ED with worsening or new symptoms.- Pt. verbalizes' understanding and agreement with proposed treatment plan. DISCHARGE: At this time pt. is stable for d/c to home. Will provide printed patient care instructions, and any necessary prescriptions. Care plan and follow up instructions have been discussed with the patient prior to discharge. CT/MRI/US Diagnostic Results CT/MRI/US Diagnostic Results #1: Imaging Test Ordered: CT Head no Contrast Impression " IMPRESSION: No acute intracranial abnormality." --Per official radiology report- Please see report for specific details. CT/MRI/US Diagnostic Results #2: Imaging Test Ordered: CT Facial Bones no Contrast Impression "IMPRESSION: No acute facial bone fracture." --Per official radiology report- Please see report for specific details. Last Vital Signs Date Time Temp Pulse Resp B/P (MAP) Pulse Ox O2 Delivery O2 Flow Rate FiO2 09/02/20 17:18 97.9 72 18 143/83 95 Room Air Status: improved Disposition: HOME, SELF-CARE Condition: Stable Scripts Acetaminophen* (TYLENOL EXTRA STRENGTH*) 500 Mg Tablet 500 MG ORAL Q6H, #20 TAB 0 Refills Prov: Anne Whalen 09/02/20 Referrals: Tasha Smart [facility] Patient Instructions: Facial or Scalp Contusion, [id number], Paresthesia, [id number] Additional Instructions: Take medications as directed. Follow up with a Primary Care Provider in 3-5 days For a referral to have NEUROLOGIST Evaluation, even if your symptoms have resolved. --Please review list of primary care clinics, if you do not already have a primary care provider Return sooner to ED if new symptoms occur, or current symptoms become worse. - Please note that this Emergency Department Report was dictated using [employer] operator helper technology software, occasionally this can lead to erroneous entry secondary to interpretation by the dictation equipment. Anne Whalen Sep 02, 2020 17:34
--- NOTE | 2020-09-02 17:57 | Diagnostic Imaging Report ---
EXAM: CT Head Without Intravenous Contrast CLINICAL HISTORY: PAIN TECHNIQUE: Axial computed tomography images of the head/brain without intravenous contrast. CTDI is 68.7 mGy and DLP is 1495.4 mGy-cm. One or more of the following dose reduction techniques were used: automated exposure control, adjustment of the mA and/or kV according to patient size, use of iterative reconstruction technique. COMPARISON: No relevant prior studies available. FINDINGS: Brain: Unremarkable. No hemorrhage. No significant white matter disease. No edema. Ventricles: Unremarkable. No ventriculomegaly. Bones/joints: Unremarkable. No acute fracture. Soft tissues: Unremarkable. Sinuses: Unremarkable as visualized. No acute sinusitis. Mastoid air cells: Unremarkable as visualized. No mastoid effusion. IMPRESSION: No acute intracranial abnormality.
--- NOTE | 2020-09-02 18:02 | Diagnostic Imaging Report ---
EXAM: CT Maxillofacial Without Intravenous Contrast CLINICAL HISTORY: PAIN TECHNIQUE: Axial computed tomography images of the face without intravenous contrast. CTDI is 68.7 mGy and DLP is 1495.4 mGy-cm. One or more of the following dose reduction techniques were used: automated exposure control, adjustment of the mA and/or kV according to patient size, use of iterative reconstruction technique. Coronal reformatted images were created and reviewed. Axial reformatted images were created and reviewed. COMPARISON: No relevant prior studies available. FINDINGS: Bones/joints: No acute fracture. Soft tissues: Unremarkable. Orbits: Unremarkable. Sinuses: Mild right inferior maxillary sinus mucosal thickening. No air-fluid levels. Dental: Partially limited evaluation of the oral cavity secondary to significant streak artifact from dental hardware and amalgam. IMPRESSION: No acute facial bone fracture.
--- NOTE | 2020-09-02 18:09 | NUR ---
ED Nurse Note:pt. had CT scan done
[2020-09-02] MEDS ORDERED: TYLENOL EXTRA500 MG ORAL (19:08)
[2020-09-02 19:09] VITALS: BP 116/77
[2020-09-02 19:10] VITALS: BP 116/77
--- NOTE | 2020-09-02 19:11 | NUR ---
ED Nurse Note: Pt cleared by health care Provider for discharge. DC instructions/prescription was given and explained to pt and verbalized understanding of teachings. All medical deviecs such as ID band removed. Pt is AAO x4, ambulatory and left with all personal belongings.
== END 2020-09-02 19:11 | disposition home or self-care (01) ==
LOC: EMR 17:31
DX: S00.83XA Contusion of other part of head, initial encounter (principal); R20.2 Paresthesia of skin; Z88.0 Allergy status to penicillin; E78.00 Pure hypercholesterolemia, unspecified; Z85.46 Personal history of malignant neoplasm of prostate; Z85.820 Personal history of malignant melanoma of skin; W01.0XXA Fall on same level from slipping, tripping and stumbling without subsequent striking against object, initial encounter; Y92.9 Unspecified place or not applicable; Z79.82 Long term (current) use of aspirin; E78.5 Hyperlipidemia, unspecified
CPT/HCPCS: 70450; 70486; Z7502; 99284